=== PATIENT | male | born 1985 | race Caucasian/White ===

== ENCOUNTER 2023-05-24 15:54 | Emergency (ER) | payer MEDICAID ==
[~2023-05-24] VITALS: Ht 172.7 cm; Wt 73.0 kg
[2023-05-24 16:05] VITALS: BP 118/88; PULSE 72; RESP 18; TEMP 98.4; O2SAT 100
[2023-05-24] MEDS ORDERED: ONDANSETRON HCL 4MG/2ML INJ IV STA (16:05)
[2023-05-24] MEDS ORDERED: FAMOTIDINE 20MG/2ML VIAL IV STA (16:05)
[2023-05-24] MEDS ORDERED: ACETAMINOPHEN 325MG TABLET PO ONE (16:15)
[2023-05-24] MEDS ORDERED: SODIUM CHLORIDE 0.9% 1,000 ML IV ONE (16:15)
[2023-05-24 16:42] LABS: BASOPHILS % 0.5 % (0.0-2.0); EOSINOPHILS % 0.1 % (0.0-5.0); HEMATOCRIT. 51.6 % (42.0-52.0); HEMOGLOBIN. 17.1 g/dL (14.0-18.0); LYMPHOCYTES % 7.8 % (20.0-50.0); MEAN CORPUSCULAR HEMOGLOBIN 27.2 pg (28.0-32.0); MEAN CORPUSCULAR HGB CONC 33.1 g/dL (31.0-37.0); MEAN CORPUSCULAR VOLUME 82.3 fL (80.0-94.0); MONOCYTES % 4.9 % (2.0-8.0); NEUTROPHILS % 86.7 % (40.0-76.0); RED BLOOD CELL COUNT 6.27 mill/uL (4.7-6.1); RED CELL DISTRIBUTION WIDTH 16.1 % (11.6-14.6); WHITE BLOOD COUNT 12.2 x1000/uL (4.5-11.0)
[2023-05-24 16:46] LABS: DIFFERENTIAL COMMENT 1
[2023-05-24 16:57] LABS: PLATELET 358 x1000/uL (130-400)
[2023-05-24 16:58] LABS: MEAN PLATELET VOLUME 7.5 fl (7.4-10.4)
[2023-05-24 17:05] LABS: ALANINE AMINOTRANSFERASE 86 IU/L (10-49); ALBUMIN 5.4 g/dL (3.2-4.8); ASPARTATE AMINOTRANSFERASE 47 IU/L (<34); BILIRUBIN TOTAL 0.4 mg/dL (0.1-1.0); CALCIUM 10.9 mg/dL (8.7-10.4); CARBON DIOXIDE 34 mEq/L (21-32); CHLORIDE 95 mEq/L (98-107); CREATININE 1.4 mg/dL (0.6-1.3); GLUCOSE 121 mg/dL (70-105); POTASSIUM 4.9 mEq/L (3.5-5.1); PROTEIN TOTAL 9.5 g/dL (6.0-8.3); SODIUM 139 mEq/L (136-145); UREA NITROGEN BLOOD 24 mg/dL (9-23)
== END 2023-05-24 19:36 | disposition left against medical advice (07) ==
LOC: ER 15:54
DX: R19.7 Diarrhea, unspecified (principal); R42 Dizziness and giddiness; R11.2 Nausea with vomiting, unspecified; R79.89 Other specified abnormal findings of blood chemistry
CPT/HCPCS: 99284; 80053; 83690; 85025; 36415; 93005; J7030

== ENCOUNTER 2024-08-16 21:30 | Emergency (ER) | payer MEDICAID, OTHER ==
[~2024-08-16] VITALS: Ht 167.6 cm; Wt 70.0 kg
[2024-08-16 21:32] VITALS: TEMP 36.7; O2SAT 98
[2024-08-16] MEDS: IBUPROFEN 400MG TABLET PO ONE (23:15)
[2024-08-17 01:18] VITALS: BP 100/57; PULSE 70; RESP 18; O2SAT 98
== END 2024-08-17 01:29 ==
LOC: ER 21:30
DX: S80.812A Abrasion, left lower leg, initial encounter (principal); F19.90 Other psychoactive substance use, unspecified, uncomplicated; X58.XXXA Exposure to other specified factors, initial encounter; Y93.89 Activity, other specified; Y92.89 Other specified places as the place of occurrence of the external cause; Y99.8 Other external cause status
CPT/HCPCS: 73502; 73552; 99284